=== PATIENT | male | born 1960 | race Hispanic/Latino ===

== ENCOUNTER 2020-02-28 10:55 | Emergency (ER) | payer OTHER ==
[~2020-02-28] VITALS: Ht 180.3 cm; Wt 108.9 kg
[2020-02-28] MEDS ORDERED: HYDROCODONE/APAP 10MG-325MG TAB PO ONE (14:15)
[2020-02-28] MEDS ORDERED: KETOROLAC TROMETHAMINE 60 MG/2 ML VIAL IM ONE (14:15)
[2020-02-28] MEDS ORDERED: METHYLPREDNISOLONE SOD SUCC 125 MG/2ML VIAL IV ONE (14:15)
--- NOTE | 2020-02-28 14:15 | Emergency Department Note ---
History of Present Illnes History of Present Illness Chief Complaint: Extremity Trauma/Pain History of Present Illness This is a 59 year old male arrived to the ED with complaints of back pain radiating down to his feet, denies any recent surgeries, denies any bowel or urine output, denies any numbness or weakness in extremities. Chief Complaint Comment X 1 WEEK PAIN TO LOWER BACK PAIN THAT RADIATES DOWN TO FEET. PAIN DESCRIBED NERVE PAIN. WALKED IN USING CRUTCHES. PAIN INCREASES WITH WALKING. NO LOSS OF BOWELS OR URINE. SEEN BY PRIMARY DOCTOR AND GIVEN PAIN MEDICATION, BUT IT IS NOT WORKING. HE IS UNSURE OF WHAT HE WAS GIVEN Historian: Patient Additional Treatment [employer]: NONE Onset (how long ago): day(s) Radiation: Reports back, Reports distal Severity: mild Duration (how long): day(s) Timing of current episode: intermittent Progression: unchanged Chronicity: new Context: Denies recent illness, Denies recent surgery, Denies recent immobilization, Denies recent travel, Denies trauma/injury Past Medical/Family History Physician Review I have reviewed the patient's past medical and family history. Any updates have been documented here. Past Medical History Recent Fever: No Clinical Suspicion of Infectio: No New/Unexplained Change in Ment: No Past Medical History: None Past Surgical History: None Review of Systems Review of Systems Musculoskeletal: Reports as per HPI, Reports back pain Physical Exam Related Data Allergies: Coded Allergies: No Known Allergies (Unverified , 02/28/20) Triage Vital Signs Vital Signs Date Time Temp Pulse Resp B/P (MAP) Pulse Ox O2 Delivery O2 Flow Rate FiO2 02/28/20 11:03 97.6 87 18 125/62 98 Room Air Vital signs reviewed: Yes Physical Exam CONSTITUTIONAL Constitutional: Present well-developed, Present well-nourished HENT HENT: Present normocephalic, Present atraumatic, Present oropharynx clear/moist, Present nose normal HENT L/R: Present left ext ear normal, Present right ext ear normal EYES Eyes: Reports PERRL, Reports conjunctivae normal NECK Neck: Present ROM normal PULMONARY Pulmonary: Present effort normal, Present breath sounds normal CARDIOVASCULAR Cardiovascular: Present regular rhythm, Present heart sounds normal, Present capillary refill normal, Present normal rate GASTROINTESTINAL Abdominal: Present soft, Present nontender, Present bowel sounds normal GENITOURINARY Genitourinary: Present exam deferred SKIN Skin: Present warm, Present dry MUSCULOSKELETAL Musculoskeletal: Present ROM normal NEUROLOGICAL Neurological: Present alert, Present oriented x 3, Present no gross motor or sensory deficits PSYCHOLOGICAL Psychological: Present mood/affect normal, Present judgement normal Results Imaging Imaging results reviewed: Yes Impressions IMPRESSION: 1. Severe spinal canal stenoses from L2-L3 to L4-L5 due to degenerative changes and scoliosis. 2. Multilevel moderate to severe foraminal stenoses from L2-L3 to L5-S1 as detailed above. Assessment & Plan Medical Decision Making MDM 59-year-old male arrived to the ED with complaints of back pain worse with ambulation. Patient denies numbness or weakness, no history of IV drug use, patient is ambulatory. No concerns of cauda equina syndrome, epidural abscess or any acute neurological process. Patient was given pain medication and instruction to follow-up with outpatient orthopedist Assessment & Plan Final Impression: (1) Sciatic leg pain Depart Disposition: HOME, SELF-CARE Last Vital Signs Date Time Temp Pulse Resp B/P (MAP) Pulse Ox O2 Delivery O2 Flow Rate FiO2 02/28/20 11:03 97.6 87 18 125/62 98 Room Air Home Meds Active Scripts Diazepam (VALIUM) 2 Mg Tablet, 2 MG PO Q6H PRN for MUSCLE SPASMS, #20 0 Refills Prov:SHAKIRA PARSONS, 02/28/20 Tramadol Hcl (ULTRAM) 50 Mg Tablet, 50 MG PO Q6HR PRN for Mild Pain (1-3) or Fever>100.8, #14 TAB Prov:SHAKIRA PARSONS, 02/28/20 Methylprednisolone (MEDROL) 4 Mg Tablet, 4 MG PO DAILY, #21 TAB Prov:SHAKIRA PARSONS, 02/28/20 SHAKIRA PARSONS, Feb 28, 2020 14:15
--- NOTE | 2020-02-28 14:22 | Diagnostic Imaging Report ---
EXAM: CT Pelvis WITHOUT contrast INDICATION: Pelvic pain. Leg pain. Lower back pain. Pain radiating to the feet. Nerve pain. Pain worse with walking. Pain not responding to conservative management COMPARISON: None. TECHNIQUE: Pelvis were scanned utilizing a multidetector helical scanner from the iliac crest to the pubic symphysis without administration of IV contrast. Coronal and sagittal reformations were obtained. Routine protocol was performed. IV CONTRAST: None ORAL CONTRAST: Water COMPLICATIONS: None RADIATION DOSE: Total DLP: 1166 mGy*cm Estimated effective dose: (DLP x 0.015 x size factor) mSv CTDIvol has been reviewed. It is below the limits set by the Radiation Protocol Committee (RPC). Dose modulation, iterative reconstruction, and/or weight based adjustment of the mA/kV was utilized to reduce the radiation dose to as low as reasonably achievable. FINDINGS: LINES and TUBES: None. GI TRACT: No abnormal distention, wall thickening, or evidence of bowel obstruction. Appendix is normal. Scattered diverticulosis without evidence of diverticulitis. PELVIC ORGANS/BLADDER: Unremarkable. LYMPH NODES: No lymphadenopathy. VESSELS: Scattered vascular calcification. PERITONEUM / RETROPERITONEUM: No free air or fluid. BONES: Scattered degenerative change. Bone island in the left femoral head. SOFT TISSUES: Unremarkable. Scattered pelvic phleboliths. IMPRESSION: Scattered degenerative change about the visualized lower lumbar spine and pelvis. Scattered diverticulosis without evidence of diverticulitis. Signed by: Dr. Ronald Wang M.D. on 02/28/2020 2:18 PM
--- NOTE | 2020-02-28 14:42 | Diagnostic Imaging Report ---
EXAMINATION: CT of the lumbar spine HISTORY: Low back pain radiating to the bilateral lower extremities COMPARISON: None available TECHNIQUE: Multidetector helical axial images were obtained without contrast from L1 to S1. Dose modulation, iterative reconstruction, and/or weight based adjustment of the mA/kV was utilized to reduce the radiation dose to as low as reasonably achievable. FINDINGS: Alignment: Straightening of the lumbar lordosis. S-shaped scoliosis with dominant dextroscoliosis centered at L4-L5 and left upper lumbar compensatory curve.. Vertebral bodies: No acute fractures. Chronic endplate degenerative changes from L2 to S1. Paraspinal muscles: Normal. Intervertebral disks: L1-L2: Mild symmetric disc bulge and facet arthrosis without stenoses. L2-L3: Asymmetric right disc bulge, vacuum phenomena, marginal endplate osteophytes, ligamentum flavum thickening and facet arthrosis. Severe spinal canal stenosis. Severe right and mild left foraminal stenosis. L3-L4: Asymmetric right disc bulge, vacuum phenomena, ligamentum flavum thickening and facet arthrosis. Severe spinal canal and bilateral foraminal stenoses. L4-L5: Asymmetric left disc/coma marginal endplate osteophytes and facet arthrosis. Moderate spinal canal stenosis. Severe left and moderate right foraminal stenoses. L5-S1: Symmetric disc bulge, vacuum phenomena, bilateral lateral margin of endplate osteophytes and facet arthrosis. Mild spinal canal stenosis. Severe bilateral foraminal stenoses. Sacroiliac joints: Mild degenerative changes. IMPRESSION: 1. Severe spinal canal stenoses from L2-L3 to L4-L5 due to degenerative changes and scoliosis. 2. Multilevel moderate to severe foraminal stenoses from L2-L3 to L5-S1 as detailed above. Signed by: Dr. Rajni Gillis M.D. on 02/28/2020 2:39 PM
--- NOTE | 2020-02-28 15:39 | NUR ---
DR. PARSONS IN WITH PT. AT THIS TIME.
[2020-02-28] MEDS ORDERED: ULTRAM50 MG PO (15:50)
[2020-02-28] MEDS ORDERED: MEDROL4 MG PO (15:50)
[2020-02-28] MEDS ORDERED: VALIUM2 MG PO (15:51)
== END 2020-02-28 16:30 | disposition home or self-care (01) ==
LOC: ER 11:59
DX: M54.42 Lumbago with sciatica, left side (principal); M54.41 Lumbago with sciatica, right side
CPT/HCPCS: 72131; 72192; 99284; J1885; J2930

== ENCOUNTER 2020-03-20 05:44 | Observation (INO) | payer OTHER ==
[2020-03-17 11:54] LABS: BASOPHILS % 0.5 % (0.0-1.0); EOSINOPHILS # (AUTO) 0.3 (0.0-0.4); EOSINOPHILS % 3.4 % (0.0-6.0); HEMATOCRIT 47.3 % (38.2-49.6); HEMOGLOBIN 15.2 g/dL (14.0-18.0); LYMPHOCYTES # (AUTO) 1.8 (1.0-3.2); LYMPHOCYTES % 23.5 % (18.0-39.1); MEAN CORPUSCULAR HEMOGLOBIN 28.9 pg (28-32); MEAN CORPUSCULAR HGB CONC 32.1 g/dL (31-35); MEAN CORPUSCULAR VOLUME 89.9 fL (81-99); MONOCYTES # (AUTO) 0.7 (0.2-0.8); MONOCYTES % 9.1 % (4.4-11.3); NEUTROPHILS # (AUTO) 4.8 (2.1-6.9); PLATELET COUNT 244 x10e3/uL (140-360); RED BLOOD COUNT 5.26 x10e6/uL (4.3-5.7); RED CELL DISTRIBUTION WIDTH 13.2 % (11.7-14.4)
[2020-03-17 12:10] LABS: INR 0.91; PROTHROMBIN TIME 12.7 seconds (11.9-14.5)
[2020-03-17 12:17] LABS: ANION GAP 13.9 mmol/L (8-16); BLOOD UREA NITROGEN 16 mg/dL (7-26); BUN/CREATININE RATIO 19 (6-25); CALCIUM 9.5 mg/dL (8.4-10.2); CARBON DIOXIDE 27 mmol/L (22-29); CHLORIDE 102 mmol/L (98-107); CREATININE, SERUM 0.85 mg/dL (0.72-1.25); EST GLOMERULAR FILTRATION RATE > 60 ML/MIN (60-); GLUCOSE 120 mg/dL (74-118); POTASSIUM 3.9 mmol/L (3.5-5.1); SODIUM 139 mmol/L (136-145)
--- NOTE | 2020-03-17 12:51 | Diagnostic Imaging Report ---
EXAMINATION: CHEST 2 VIEWS INDICATION: Pre-operative COMPARISON: None FINDINGS: LINES/TUBES:None LUNGS:The lungs are well-inflated. No focal consolidation or pulmonary edema. PLEURA:No pleural effusion or pneumothorax. MEDIASTINUM:The cardiomediastinal silhouette appears normal in size and shape. BONES/SOFT TISSUES:No acute osseous injury. ABDOMEN:No free air under the diaphragm. IMPRESSION: No focal pneumonia or pulmonary edema. Signed by: Kasie Cazares MD on 03/17/2020 12:48 PM
[~2020-03-20] VITALS: Ht 180.3 cm; Wt 108.9 kg
[~2020-03-20 05:44] MED LIST: MEDROL4 MG PO; ULTRAM50 MG PO; VALIUM2 MG PO
[2020-03-20] MEDS ORDERED: CEFAZOLIN SOD 1 GM/NS 50ML 100 ML IV ONE (06:17)
[2020-03-20] MEDS ORDERED: THROMBIN FOR SOLN 5,000 UNIT VIAL ONE (06:57)
[2020-03-20] MEDS ORDERED: VANCOMYCIN HCL 1 GM VIAL ONE (06:57)
[2020-03-20] MEDS ORDERED: LIDOCAINE 1% W/EPINEPHRINE 20 ML VIAL ONE (06:57)
[2020-03-20] MEDS ORDERED: ACETAMINOPHEN 1000 MG/100 ML 100 ML IV ONE (07:25)
[2020-03-20] MEDS ORDERED: LIDOCAINE HCL (LTA) 4 ML SOLN ONE (07:25)
[2020-03-20] MEDS ORDERED: ACETAMINOPHEN 325 MG TAB PO PRN (09:45)
[2020-03-20] MEDS ORDERED: HYDROMORPHONE 2MG/ML 2 MG/ML ML IV PRN (09:45)
[2020-03-20] MEDS ORDERED: CARISOPRODOL 350 MG TAB PO PRN (09:45)
[2020-03-20] MEDS ORDERED: LACTATED RINGER'S 1,000 ML IV SCH (09:45)
[2020-03-20] MEDS ORDERED: ONDANSETRON HCL INJ 2MG/ML 2ML 2 MG/ML VIAL IV PRN (09:45)
[2020-03-20] MEDS ORDERED: MORPHINE SULFATE 5 MG/ML VIAL IM PRN (09:45)
[2020-03-20] MEDS ORDERED: MAGNESIUM/ALUMINUM/SIMETHICONE 30 ML UDC PO PRN (09:45)
[2020-03-20] MEDS ORDERED: PROMETHAZINE HCL (IM) 25 MG/ML VIAL IM PRN (09:45)
[2020-03-20] MEDS ORDERED: FENTANYL CITRATE/PF 100MCG/2 ML INJ ONE ×2 (10:18→14:12)
[2020-03-20 11:13] VITALS: BP 126/81
--- NOTE | 2020-03-20 12:20 | Diagnostic Imaging Report ---
Lumbar spine, crosstable portable lateral intraoperative view at 7:57 hours Lumbar spine, crosstable portable lateral intraoperative view at 8:08 hours INDICATION: ^[id number] ^0815 ^X-RAY FOR SURGICAL LEVEL. Comparison: None available. Discussion: Radiologist is not present for these examinations. Lateral intraoperative single views of the lumbar spine are obtained, significantly limited due to overlying soft tissues and poor visualization. 2 obliquely oriented metallic instrument identified projecting over the L4 vertebral body on the initial image. Metallic instruments are identified at the posterior aspect of the L3-4 vertebral interspace on the second image. Multilevel advanced degenerative changes are noted from L2-3 through L5-S1 with disc space narrowing and small osteophytes. The posterior elements are not well visualized. IMPRESSION: Two separate intraoperative portable crosstable lateral views of the lumbar spine as described above. Please see operative report for further details. Signed by: Mauro Heath MD on 03/20/2020 12:16 PM
--- NOTE | 2020-03-20 12:20 | Diagnostic Imaging Report ---
Lumbar spine, crosstable portable lateral intraoperative view at 7:57 hours Lumbar spine, crosstable portable lateral intraoperative view at 8:08 hours INDICATION: ^[id number] ^0815 ^X-RAY FOR SURGICAL LEVEL. Comparison: None available. Discussion: Radiologist is not present for these examinations. Lateral intraoperative single views of the lumbar spine are obtained, significantly limited due to overlying soft tissues and poor visualization. 2 obliquely oriented metallic instrument identified projecting over the L4 vertebral body on the initial image. Metallic instruments are identified at the posterior aspect of the L3-4 vertebral interspace on the second image. Multilevel advanced degenerative changes are noted from L2-3 through L5-S1 with disc space narrowing and small osteophytes. The posterior elements are not well visualized. IMPRESSION: Two separate intraoperative portable crosstable lateral views of the lumbar spine as described above. Please see operative report for further details. Signed by: Mauro Heath MD on 03/20/2020 12:16 PM
--- NOTE | 2020-03-20 12:51 | NUR ---
Discontinuing PT services since patient is Mod I in functional mobility. Thank you Addendum: 03/20/20 at 1251 by Jae parikh PT Amended: Links added.
[2020-03-20 12:52] VITALS: BP 126/81
[2020-03-20] MEDS ORDERED: DEXAMETHASONE SOD PHOS INJ 4 MG/ML VIAL ONE (13:12)
[2020-03-20] MEDS ORDERED: ONDANSETRON HCL INJ 2MG/ML 2ML 2 MG/ML VIAL ONE (13:12)
[2020-03-20] MEDS ORDERED: GLYCOPYRROLATE INJ 0.2 MG/ML VIAL ONE (13:12)
[2020-03-20] MEDS ORDERED: SEVOFLURANE INHAL SOLN 250 ML PEN BTL ONE (13:12)
[2020-03-20] MEDS ORDERED: EPHEDRINE SULFATE INJ 50 MG/ML VIAL ONE (13:12)
[2020-03-20] MEDS ORDERED: LIDOCAINE HCL 2% LOCAL INJ 5 ML SDV VIAL INJ ONE (13:12)
[2020-03-20] MEDS ORDERED: NEOSTIGMINE 1 MG/ML 10ML VIAL ONE (13:12)
[2020-03-20] MEDS ORDERED: PROPOFOL IV EMULSION 10 MG/ML 20 ML VIAL ONE (13:12)
[2020-03-20] MEDS ORDERED: ROCURONIUM BROMIDE 10 MG/ML 5ML VIAL IV ONE (13:12)
[2020-03-20] MEDS ORDERED: MIDAZOLAM HCL 2 MG/2 ML VIAL ONE (14:12)
[2020-03-20] MEDS ORDERED: SODIUM CHLORIDE 0.9% 250ML 250 ML ONE (16:16)
[2020-03-20 16:20] VITALS: BP 123/75
[2020-03-20] MEDS: CEFAZOLIN SOD 1 GM/NS 50ML 50 ML IV SCH (16:54)
--- NOTE | 2020-03-20 17:03 | Operative Report ---
DATE OF PROCEDURE: 03/20/2020 SURGEON: Grant Villareal MD PREOPERATIVE DIAGNOSIS: Severe L2-3 and L3 spinal stenosis with bilateral radiculopathy and neurogenic claudication, M48.062. POSTOPERATIVE DIAGNOSIS: Severe L2-3 and L3 spinal stenosis with bilateral radiculopathy and neurogenic claudication, M48.062. PROCEDURES: 1. L2 bilateral decompressive laminectomy at L2-3, bilateral medial facetectomies, 74139. 2. L3 bilateral decompressive laminectomy and L3-4 bilateral medial facetectomies, 90429. 3. L4 bilateral partial decompressive laminectomy, 09698. ANESTHESIA: General. INDICATIONS: The patient is a 59-year-old man, who presents with severe L2-3 and L3-4 spinal stenosis with bilateral radiculopathy, unable to walk except with crutches. The pain is worse on the right leg. He was taken to surgery for bilateral decompressive laminectomy. PROCEDURE IN DETAIL: After induction of general anesthesia, the patient was placed on the operating table in prone position over a Tigre frame. Lumbar region was prepped and draped in sterile fashion. A preoperative x-ray was obtained. The midline incision was created and the L2, L3 and L4 spinous processes and laminae were exposed. The second x-ray revealed correct localization. The spinous processes of L2, L3, and L4 were resected. The operating microscope was brought in. A high-speed drill equipped with bryanna bur was used to drill the inferior 2/3rd of the lamina of L2 and superior 1/3rd of the lamina of L4 and all the lamina of L3 bilaterally. The markedly hypertrophic ligamentum flavum was resected from the dorsal aspect of the dural sac and from the lateral recesses bilaterally. On the right side at L3-4, a hemorrhagic synovial cyst emerging from the facet joint was compressing the dural sac and was resected and submitted as a separate specimen. Excellent decompression was thus achieved. The disk spaces were visualized and examined. Chronic disk osteophyte complexes were present at both levels, but no acute disk herniation was found. No diskectomy was performed. The wound was copiously irrigated with bacitracin solution. Small piece of Gelfoam was placed in the lateral recesses for hemostasis. A Hemovac drain was placed and brought out through a separate stab incision. The wound was closed in multiple layers with 0 and 2-0 Vicryl sutures. The skin was closed with 3-0 Monocryl sutures and manuel. Dressing was applied. The patient was awakened, extubated, and taken to postanesthesia care unit in stable condition. No intraoperative complications were encountered. ESTIMATED BLOOD LOSS: 50 mL. Grant Villareal MD PP/JAMIE /[id number]
[2020-03-20] MEDS: OXYCODONE/ACETAMINOPHEN 5-325 1 EACH TABLET PO PRN (17:55)
[2020-03-20 20:00] VITALS: BP 118/72
[2020-03-20] MEDS ORDERED: ZOLPIDEM TARTRATE 5 MG TAB PO PRN (21:00)
[2020-03-21] VITALS: BP 109/72
[2020-03-21] MEDS: CEFAZOLIN SOD 1 GM/NS 50ML 50 ML IV SCH ×2 (01:46→08:34)
[2020-03-21 04:00] VITALS: BP 112/79
[2020-03-21] MEDS: OXYCODONE/ACETAMINOPHEN 5-325 1 EACH TABLET PO PRN ×2 (04:31→12:32)
--- NOTE | 2020-03-21 07:00 | NUR ---
BEDSIDE SHIFT REPORT RECEIVED FROM SWITCH TENDER RN. PT DENIES NEEDS AT THIS TIME.
[2020-03-21 07:38] VITALS: BP 107/67
[2020-03-21 08:00] VITALS: BP 107/67
--- NOTE | 2020-03-21 11:00 | NUR ---
DISCONTINUED HEMOVAC DRAIN. TIP INTACT, PT TOLERATED. BLEEDING STOPPED AND DRESSING APPLIED.
[2020-03-21 12:22] VITALS: BP 107/66
== END 2020-03-21 14:00 | disposition home or self-care (01) ==
LOC: OR 05:44 → PACU V 09:43 → MED/SURG 11:02
PROVIDERS: ADMIT Neurological Surgery; ATTEND Neurological Surgery
DX: M48.062 Spinal stenosis, lumbar region with neurogenic claudication (principal); Z11.59 Encounter for screening for other viral diseases
CPT/HCPCS: 36415; 63047; 63048 ×2; 71046; 72020; 80048; 85025; 85610; 85730; 86850; 86900; 88304; 93005; 97116; 97161; G0378 ×2; J0131; J0690 ×2; J1100; J2001; J2250; J2405; J2704; J2710; J3010; J3370; J7050; U0002

== ENCOUNTER 2020-04-18 10:00 | Outpatient (RCR) | payer OTHER | END 2020-04-19 | LOC: PT 10:00 | PROVIDERS: ATTEND Neurological Surgery | DX: M48.062 Spinal stenosis, lumbar region with neurogenic claudication (principal) ==

== ENCOUNTER 2020-05-16 10:00 | Outpatient (RCR) | payer OTHER | END 2020-05-19 | LOC: PT 10:00 | PROVIDERS: ATTEND Neurological Surgery | DX: M48.062 Spinal stenosis, lumbar region with neurogenic claudication (principal) | CPT/HCPCS: 97139 ==

== ENCOUNTER 2020-06-06 09:59 | Outpatient (RCR) | payer OTHER | END 2020-06-19 | LOC: PT 09:59 | PROVIDERS: ATTEND Neurological Surgery | DX: M48.062 Spinal stenosis, lumbar region with neurogenic claudication (principal) ==

== ENCOUNTER 2020-12-16 10:00 | Outpatient (RCR) | payer OTHER | END 2020-12-17 | LOC: PT 10:00 | PROVIDERS: ATTEND Orthopaedic Surgery | DX: Z96.651 Presence of right artificial knee joint (principal); Z47.1 Aftercare following joint replacement surgery; M17.11 Unilateral primary osteoarthritis, right knee; M25.561 Pain in right knee; M25.661 Stiffness of right knee, not elsewhere classified; M25.461 Effusion, right knee; R26.89 Other abnormalities of gait and mobility; M62.81 Muscle weakness (generalized) | CPT/HCPCS: 97139 ==

== ENCOUNTER 2021-01-16 09:38 | Outpatient (RCR) | payer OTHER | END 2021-01-17 | LOC: PT 09:38 | PROVIDERS: ATTEND Orthopaedic Surgery | DX: Z47.1 Aftercare following joint replacement surgery (principal); Z96.651 Presence of right artificial knee joint; M25.561 Pain in right knee; M25.661 Stiffness of right knee, not elsewhere classified; M25.461 Effusion, right knee; R26.89 Other abnormalities of gait and mobility; M62.81 Muscle weakness (generalized) ==

== ENCOUNTER 2021-03-17 10:54 | Outpatient (RCR) | payer OTHER | END 2021-03-19 | LOC: PT 10:54 | PROVIDERS: ATTEND Orthopaedic Surgery Sports Medicine | DX: Z96.652 Presence of left artificial knee joint (principal); M25.562 Pain in left knee; M25.662 Stiffness of left knee, not elsewhere classified; M62.81 Muscle weakness (generalized) ==

== ENCOUNTER 2021-04-17 10:48 | Outpatient (RCR) | payer OTHER | END 2021-04-19 | LOC: PT 10:48 | PROVIDERS: ATTEND Orthopaedic Surgery Sports Medicine | DX: S76.111A Strain of right quadriceps muscle, fascia and tendon, initial encounter (principal) ==

== ENCOUNTER → 2021-05-19 | Outpatient (RCR) | payer OTHER | LOC: PT 04-21 10:54 | PROVIDERS: ATTEND Orthopaedic Surgery Sports Medicine | DX: M25.561 Pain in right knee (principal); M62.81 Muscle weakness (generalized) ==

== ENCOUNTER → 2022-12-17 | Outpatient (RCR) | payer BC | LOC: PT 15:40 | PROVIDERS: ATTEND Internal Medicine | DX: M54.16 Radiculopathy, lumbar region (principal) ==